=== PATIENT | male | born 1960 | race Caucasian/White ===

== ENCOUNTER 2017-02-11 19:10 | Emergency (ER) | payer OTHER ==
[~2017-02-11] VITALS: Ht 180.3 cm; Wt 77.1 kg
[~2017-02-11 19:10] MED LIST: KEFLEX500 MG PO
== END 2017-02-11 21:00 | disposition home or self-care (01) ==
LOC: ED 19:10
DX: S05.91XA Unspecified injury of right eye and orbit, initial encounter (principal); T63.441A Toxic effect of venom of bees, accidental (unintentional), initial encounter; F17.200 Nicotine dependence, unspecified, uncomplicated; Y92.9 Unspecified place or not applicable

== ENCOUNTER 2017-06-23 11:30 | Emergency (ER) | payer OTHER ==
[~2017-06-23] VITALS: Ht 182.8 cm; Wt 77.1 kg
[2017-06-23] MEDS ORDERED: CYCLOBENZAPRINE10 MG PO (13:43)
[2017-06-23] MEDS ORDERED: NORCO 5-325 TA1 EACH PO (13:43)
[2017-06-23] MEDS ORDERED: NAPROSYN500 MG PO (13:43)
== END 2017-06-23 13:48 | disposition home or self-care (01) ==
LOC: ED 11:30
DX: M54.6 Pain in thoracic spine (principal); F10.10 Alcohol abuse, uncomplicated

== ENCOUNTER 2019-08-31 16:47 | Inpatient (IN) | payer OTHER ==
[~2019-08-31] VITALS: Ht 180.3 cm; Wt 73.7 kg
[~2019-08-31 16:47] MED LIST changes: +CYCLOBENZAPRINE10 MG PO; +NAPROSYN500 MG PO; +NORCO 5-325 TA1 EACH PO
[2019-08-31 16:57] VITALS: BP 144/84
[2019-08-31 18:09] LABS: HEMATOCRIT 47.4 % (42.0-52.0); HEMOGLOBIN 16.4 g/dl (14.0-18.0); MEAN CELL VOLUME 96.1 fl (80.0-94.0); MEAN CORPUSCULAR HGB 33.3 pg (27.0-31.0); MEAN CORPUSCULAR HGB CONC 34.6 g/dl (33.0-37.0); MEAN PLATELET VOLUME 9.4 fl (9.6-12.3); PLATELET COUNT AUTOMATED 192 10*3/uL (130-400); RED BLOOD COUNT 4.93 10*6/uL (4.50-5.90); RED CELL DISTRI WIDTH 12.2 % (0-14.5); WHITE BLOOD COUNT 6.7 10*3/uL (4.8-10.8)
[2019-08-31 18:19] LABS: ACT PARTIAL THROMBO TIME 29.8 SECONDS (20.0-32.1); INTERNATIONAL NORM RATIO 0.9 (2.0-3.5)
[2019-08-31 18:30] LABS: ALBUMIN 3.6 gm/dl (3.1-4.5); ALKALINE PHOSPHATASE 345 U/L (45-117); BUN 6 mg/dl (7-24); CHLORIDE 100 mmol/L (98-107); CREATININE 0.85 mg/dL (0.70-1.30); SGOT/AST 130 IU/L (3-35); SGPT/ALT 149 U/L (12-78); SODIUM 133 mmol/L (136-145); TOTAL PROTEIN 7.5 gm/dL (6.4-8.2)
[2019-08-31 18:32] LABS: TROPONIN I < 0.015 ng/ml (<0.045)
[2019-08-31 18:42] LABS: ATYPICAL LYMPHS 2 % (0-0); PLATELET SUFFICIENCY NORMAL (NORMAL); TOTAL CELLS COUNTED 100 #CELLS
[2019-08-31 19:10] VITALS: BP 142/88
[2019-08-31 19:46] VITALS: BP 141/91
--- NOTE | 2019-08-31 19:50 | NUR ---
PATIENT EATING BOX LUNCH AT THIS TIME.
[2019-08-31 20:30] VITALS: BP 153/97
--- NOTE | 2019-08-31 20:30 | NUR ---
A 59 YEAR OLD MALE PATIENT, admitted to [facility], under the services of Dr. DEMETRIUS URRUTIA,[facility] with a diagnosis of DYSPNEA ON EXERTION,PNEUMONITIS. Chief complaint is COUGH FOR 2 WEEKS, WITH CHEST HEAVINESS, ALSO SHORTNESS OF BREATH AND CHILLS. REPORTS FEVER YESTERDAY, WELL FEVERED ON ADMISSION. Patient arrived via CART WITH RN from ER. Monitor applied. Initial assessment completed. Vital signs taken and recorded. See assessment for past medical history, medications and allergies. Patient and/or family oriented to unit. [id number] reviewed. Clothing/patient valuable form completed. VERNON DELUCA
--- NOTE | 2019-08-31 21:42 | NUR ---
2129 TYLENOL 2 PO GIVEN FOR ELEVATED TEMP AND C/O PAIN POSTERIOR CHEST FROM "COUGHING". ATIVAN 1 MG PO FOR ANXIETY. WILL MONITOR. URINE SENT TO LAB FOR STREP PNEUMONIA AND LEGIONELLA. PT RESTING IN BED WATCHING TV. PULSE OX 93% ON RA. PT C/O SOB. BOYD. PLACED ON NC AT 3L WITH RELIEF. PULSE OX UP TO 96% AFTER THIS. SPUTUM CONT AT BEDSIDE.
--- NOTE | 2019-08-31 22:04 | NUR ---
RESTING IN BED WITH EYES CLOSED. APPEARS TO BE SLEEPING.
[2019-09-01] VITALS: BP 124/88
--- NOTE | 2019-09-01 00:24 | NUR ---
AFEBRILE NOW AT 98.4. MONITOR NSR IN THE 80'S. REMAINS WIHTOUT C/O'S CHEST PAIN.
[2019-09-01 04:00] VITALS: BP 155/83
--- NOTE | 2019-09-01 04:08 | NUR ---
0330 DIAPHORETIC. COMPLETE BED CHANGE DONE. ORAL TEMP IS NOW 97.5
--- NOTE | 2019-09-01 05:40 | NUR ---
PT DRINKING READICAT FOR CT OF ABD TO BE DONE THIS AM. TOLERATING WELL.
--- NOTE | 2019-09-01 06:16 | NUR ---
IV FLUIDS CONT. CONT TO DRINK CT PREP. HACKING COUGH CONT. REMAINS AFEBRILE. CONDITION GUARDED.
[2019-09-01 08:00] VITALS: BP 146/83
--- NOTE | 2019-09-01 09:00 | NUR ---
Therapeutic Activities Services Worker in to talk to patient. Patient states lives at home with his . There are 0 steps in the home. Physician: Dr. Laura Nair or Dr. Joe Carrizales [facility]acy: [facility] in [place] Home health services: none Patient's level of ADLs: INDEPENDENT Patient has working utilities: yes DME: none Follow-up physician's appointment after d/c: he prefers to make his own follow up appt after discharge Does patient want to access PORTAL?: no Discharge plan discussed with patient. He lives at home with his . He is independent in his ADLs and ambulation. Discussed home health care services and he denies any home needs at this time. When medically stable he will be discharged to home. He states he drove himself here to the hospital and plans to drive himself home. CAROLYN SIMMONS
--- NOTE | 2019-09-01 10:01 | NUR ---
DR DAVID MADE AWARE OF NEW CONSULT ORDER.
[2019-09-01 11:26] VITALS: BP 148/78
--- NOTE | 2019-09-01 15:07 | NUR ---
DR DAVID IN TO SEE PT. NO NEW ORDERS RECEIVED AT THIS TIME.
[2019-09-01 16:00] VITALS: BP 145/74; BP 149/71
--- NOTE | 2019-09-01 16:00 | NUR ---
Patient resting quietly with no c/o discomfort. Respirations easy and regular. Vital signs stable. No overt distress. NAJMA GONZALEZ
[2019-09-01 20:00] VITALS: BP 163/74
[2019-09-02] VITALS: BP 143/70
[2019-09-02 06:06] LABS: HEPATITIS B SURFACE AG Negative (Negative); HEPATITIS C VIRUS ANTIBODY <0.1 s/co (0.0-0.9)
[2019-09-02 06:33] LABS: BASO % 0.1 % (0.0-1.0); HEMATOCRIT 40.8 % (42.0-52.0); HEMOGLOBIN 14.1 g/dl (14.0-18.0); LYMPH # 1.1 10*3/uL (1.3-4.4); LYMPH % 9.6 % (27.0-41.0); MEAN CELL VOLUME 94.9 fl (80.0-94.0); MEAN CORPUSCULAR HGB 32.8 pg (27.0-31.0); MEAN CORPUSCULAR HGB CONC 34.6 g/dl (33.0-37.0); MEAN PLATELET VOLUME 9.5 fl (9.6-12.3); MONO # 0.7 10*3/uL (0.1-1.0); MONO % 6.4 % (3.0-9.0); NEUT # 9.3 10*3/uL (2.3-7.9); NEUT % 83.3 % (47.0-73.0); PLATELET COUNT AUTOMATED 249 10*3/uL (130-400); RED CELL DISTRI WIDTH 12.4 % (0-14.5); WHITE BLOOD COUNT 11.2 10*3/uL (4.8-10.8)
[2019-09-02 06:53] LABS: ALBUMIN 2.9 gm/dl (3.1-4.5); ALKALINE PHOSPHATASE 240 U/L (45-117); BUN 8 mg/dl (7-24); CHLORIDE 112 mmol/L (98-107); CREATININE 0.66 mg/dL (0.70-1.30); POTASSIUM 3.8 mmol/L (3.5-5.1); SGOT/AST 286 IU/L (3-35); SGPT/ALT 293 U/L (12-78); SODIUM 141 mmol/L (136-145); TOTAL PROTEIN 6.4 gm/dL (6.4-8.2)
[2019-09-02 08:00] VITALS: BP 152/68
--- NOTE | 2019-09-02 09:00 | NUR ---
Fish Conservationist in to see patient. He is sitting up in his bed without distress noted. Discussed discharge planning with patient. He states he is having a test tomorrow to check out his stomach. He denies any home needs. When medically stable he will be discharged to home.
--- NOTE | 2019-09-02 09:18 | NUR ---
Nutritional Support Services Note: Met w/ pt to discuss appetite. Pt states that he is eating much better and is getting his appetite back. He orders extra food w/ meals and keeps snacks in his room. Pt stated that he usually weighed ~180# and his CBW is 163#. Encouraged to continue good PO intakes. Will follow if needed.Tish Ruiz, Joao intern product marketing manager
[2019-09-02 12:00] VITALS: BP 132/76
[2019-09-02 16:00] VITALS: BP 152/79
--- NOTE | 2019-09-02 19:00 | NUR ---
ASSUMED CARE FOR THIS PT AT THIS TIME. PT AWAKE IN BED. NO C/O VOICED. CALL LIGHT IN REACH.
[2019-09-02 20:00] VITALS: BP 161/84
[2019-09-03] VITALS (7 sets, daily range): BP systolic 131–163; BP diastolic 66–87
[2019-09-03] MEDS ORDERED: PREDNISONE5 MG PO (06:42)
[2019-09-03] MEDS ORDERED: CEFUROXIME AXE250 MG PO (06:42)
[2019-09-03] MEDS ORDERED: NORVASC2.5 MG PO (06:42)
[2019-09-03 06:44] LABS: BASO % 0.1 % (0.0-1.0); HEMATOCRIT 40.7 % (42.0-52.0); HEMOGLOBIN 14.2 g/dl (14.0-18.0); LYMPH # 1.4 10*3/uL (1.3-4.4); LYMPH % 15.4 % (27.0-41.0); MEAN CELL VOLUME 97.1 fl (80.0-94.0); MEAN CORPUSCULAR HGB 33.9 pg (27.0-31.0); MEAN CORPUSCULAR HGB CONC 34.9 g/dl (33.0-37.0); MEAN PLATELET VOLUME 9.3 fl (9.6-12.3); MONO # 0.8 10*3/uL (0.1-1.0); MONO % 8.3 % (3.0-9.0); NEUT # 7.1 10*3/uL (2.3-7.9); NEUT % 75.8 % (47.0-73.0); RED BLOOD COUNT 4.19 10*6/uL (4.50-5.90); RED CELL DISTRI WIDTH 12.5 % (0-14.5); WHITE BLOOD COUNT 9.3 10*3/uL (4.8-10.8)
[2019-09-03 06:46] LABS: PLATELET COUNT AUTOMATED 324 10*3/uL (130-400)
[2019-09-03 07:01] LABS: ALBUMIN 2.9 gm/dl (3.1-4.5); ALKALINE PHOSPHATASE 245 U/L (45-117); BUN 12 mg/dl (7-24); CHLORIDE 109 mmol/L (98-107); CREATININE 0.69 mg/dL (0.70-1.30); POTASSIUM 4.3 mmol/L (3.5-5.1); SGOT/AST 428 IU/L (3-35); SGPT/ALT 664 U/L (12-78); SODIUM 141 mmol/L (136-145); TOTAL PROTEIN 6.4 gm/dL (6.4-8.2)
--- NOTE | 2019-09-03 08:00 | NUR ---
VITAL SIGNS STABLE. GALILEO. A&O X3. SKIN PINK, WARM, DRY, INTACT. DENIES PAIN AT THIS TIME. POSITIVE PEDAL PULSES. SKIN TURGOR NON-TENTED. HR 68 REGULAR. CAPPILLARY REFILL <3 SECONDS. HEART SOUNDS NORMAL. SPO2 96% R/A. LUNGS CLEAR THROUGHOUT. ABDOMEN SOFT, NON-TENDER, NON-DISTENDED. BOWEL SOUNDS ACTIVE X4. IV SITE IN THE LEFT AC IS INTACT, NO S/S OF INFECTION. PATIENT IS LAYING DOWN WITH EYES CLOSED. WILL CONTINUE TO MONITOR. [facility]
--- NOTE | 2019-09-03 09:00 | NUR ---
Lunchroom Monitor in to see patient. He is awaiting his EGD. No new needs or request at this time. His discharge is set for after his EGD. He denies any home needs. As long as medically stable patient will be discharged to home after EGD.
--- NOTE | 2019-09-03 09:25 | NUR ---
PATIENT IS LYING DOWN WITH EYES CLOSED, RESTING. ROSA HUGOCC.
--- NOTE | 2019-09-03 10:48 | NUR ---
PATIENT TO SURGERY VIA BED. CONDITION STABLE. ROSA HUGOCC.
--- NOTE | 2019-09-03 11:58 | NUR ---
DA NOT GIVEN, PT. IN SURGERY.
[2019-09-03] MEDS ORDERED: OMEPRAZOLE40 MG PO (12:35)
--- NOTE | 2019-09-03 13:16 | NUR ---
PATIENT RETURNED FROM [facility] VIA CART. A&O X3. COLOR IS GOOD SKIN WARM, PINK, AND DRY. LUNGS ARE CLEAR THROUGHOUT, NO STRIDOR. ABDOMEN SOFT, NON-TENDER, NON-DISTENDED. BOWEL SOUNDS ACTIVE X4. NO COMPLAINT VOICED. CONDITION STABLE. ROSA FINK SONJA.
--- NOTE | 2019-09-03 14:27 | NUR ---
PT DISCHARGED HOME AT THIS TIME. HEPLOCK REMOVED. DISCHARGE INSTRUCTIONS AND PRESCRIPTIONS DISCUSSED. F/U CARE ALSO DISCUSSED. PT REFUSED WHEELCHAIR AND AMBULATED OFF THE FLOOR.
[2019-09-07 02:10] LABS: ADENOVIRUS Negative (Negative); INFLUENZA A Negative (Negative); INFLUENZA B Negative (Negative); METAPNEUMOVIRUS Negative (Negative); PARAINFLUENZA 1 Negative (Negative); PARAINFLUENZA 2 Negative (Negative); PARAINFLUENZA 3 Negative (Negative); RHINOVIRUS Negative (Negative); RSV A Negative (Negative); RSV B Negative (Negative)
== END 2019-09-03 14:27 | disposition home or self-care (01) | DRG 193 ==
LOC: ED 16:47 → 5E 18:56 → EDHOLD 18:56 → ICCU 18:56 → 5E 09-01 14:15
PROVIDERS: Emergency Medicine; ADMIT Internal Medicine
PROC: 0DB68ZX Excision of Stomach, Via Natural or Artificial Opening Endoscopic, Diagnostic (ICD-10-PCS; principal; 2019-09-03)
DX: J18.9 Pneumonia, unspecified organism (principal); J96.00 Acute respiratory failure, unspecified whether with hypoxia or hypercapnia; E87.1 Hypo-osmolality and hyponatremia; B37.81 Candidal esophagitis; K52.1 Toxic gastroenteritis and colitis; J20.9 Acute bronchitis, unspecified; K29.80 Duodenitis without bleeding; R74.0 Nonspecific elevation of levels of transaminase and lactic acid dehydrogenase [LDH]; F17.210 Nicotine dependence, cigarettes, uncomplicated; J43.9 Emphysema, unspecified; I51.7 Cardiomegaly; T50.995A Adverse effect of other drugs, medicaments and biological substances, initial encounter; Y92.89 Other specified places as the place of occurrence of the external cause; Z98.52 Vasectomy status; Z71.6 Tobacco abuse counseling

== ENCOUNTER → 2019-09-07 | Outpatient (CLI) | payer OTHER ==
[~2019-09-07] MED LIST changes: +CEFUROXIME AXE250 MG PO; +NORVASC2.5 MG PO; +OMEPRAZOLE40 MG PO; +PREDNISONE5 MG PO
[2019-09-07 18:22] LABS: ALBUMIN 3.3 gm/dl (3.1-4.5); BILIRUBIN, DIRECT 0.2 mg/dL (0.0-0.2); TOTAL PROTEIN 7.3 gm/dL (6.4-8.2)
== END | disposition home or self-care (01) ==
LOC: LAB 16:57
PROVIDERS: Internal Medicine
DX: R74.0 Nonspecific elevation of levels of transaminase and lactic acid dehydrogenase [LDH] (principal)

== ENCOUNTER → 2021-04-05 | Outpatient (CLI) | payer OTHER | END | disposition home or self-care (01) | LOC: COVID19 16:37 | PROVIDERS: ATTEND Student in an Organized Health Care Education/Training Program | DX: U07.1 COVID-19 (principal) ==